=== PATIENT | male | born 1960 ===

== ENCOUNTER 2022-12-26 16:00 | Outpatient (REF) | payer BC, SELFPAY ==
[2022-12-28 09:48] LABS: Syphilis Serology (RPR) Negative (Negative)
[2022-12-28 10:20] LABS: HIV-1/2 Ag & Ab Screen Negative (Negative)
[2022-12-28 10:38] LABS: Hepatitis C Ab w Rflx HCV PCR Negative (Negative)
[2022-12-28 12:32] LABS: Chlamydia Result Negative (Negative); GC Result Negative (Negative)
== END 2022-12-26 16:01 | disposition home or self-care (01) ==
LOC: LBN 16:00
PROVIDERS: Visit Provider Nurse Practitioner Family
DX: Z11.3 Encounter for screening for infections with a predominantly sexual mode of transmission (principal); Z11.4 Encounter for screening for human immunodeficiency virus [HIV]; Z11.59 Encounter for screening for other viral diseases
CPT/HCPCS: 86803; 87389; 87491; 87529; 87591; 87798; 86592